=== PATIENT | male | born 1970 | race Caucasian/White ===

== ENCOUNTER 2018-08-11 13:33 | Emergency (ER) | payer OTHER ==
[2018-08-11] MEDS: KETOROLAC 30 MG INJ IM (15:07)
[2018-08-11] MEDS: LIDOCAINE 1% (MDV) 20 ML INJ SC (17:42)
[2018-08-11] MEDS: BUPIVACAINE 0.5% (MPF) 10 ML VIAL INJ (17:42)
[2018-08-11] MEDS: TRIAMCINOLONE ACET 40 MG/ML INJ INJ (17:42)
[2018-08-11] MEDS: BUPIVACAINE 0.5% (MPF) 30 ML INJ INJ (17:42)
[2018-08-11 20:37] LABS: SYN FLD MN % 48.3 &; SYN FLD PMN % 51.7 % (0.0-25.0); SYN FLD WBC 2536 /cmm (0-150)
[2018-08-11 20:54] LABS: SYN FLD SOURCE RIGHT KNEE
[2018-08-11 20:54] LABS: SYN FLD COLOR YELLOW
[2018-08-11 20:55] LABS: SYN FLD CLARITY CLOUDY; SYN FLD CRYSTALS NO CRYSTALS SEEN (None seen)
[2018-08-11 21:45] LABS: FLUID TYPE SYNOVIAL FLUID
[2018-08-11 21:46] LABS: FLUID TYPE SYNOVIAL FLUID
== END 2018-08-11 20:01 | disposition home or self-care (01) ==
LOC: FTE 13:33
DX: M25.461 Effusion, right knee (principal)
CPT/HCPCS: 20610; 73562; 82945; 83615; 84157; 87070; 87102; 87116; 89060; 96372; 99284-25